=== PATIENT | female | born 1965 | race Caucasian/White ===

== ENCOUNTER 2019-04-02 06:24 | Observation (INO) | payer OTHER, SELFPAY ==
[2019-04-02] MEDS ORDERED: Aspirin Chewable 81 MG TAB ONE (07:18)
[2019-04-02] MEDS ORDERED: Nitroglycerin 0.4 MG TAB 1 EACH ONE (07:18)
[2019-04-02 07:42] LABS: Hemoglobin 11.6 g/dL (12.0-16.0); Mean Corpuscular HGB CONC 31.3 g/dL (32.0-36.0); Mean Corpuscular Volume 83.1 fL (78.0-98.0); Mean Platelet Volume 12.8 fL (7.4-10.4); Platelet Count 166 thou/uL (130-400); RBC Distribution Width 14.8 % (11.5-14.5); Red Blood Cell (RBC) Count 4.46 mill/uL (4.20-5.40); White Blood Cell (WBC) Count 9.5 thou/uL (4.8-10.8)
[2019-04-02 07:43] LABS: #Lymphocytes 0.8 thou/uL (1.20-3.40); #Monocytes 0.3 thou/uL (0.11-0.59); #Neutrophils 8.3 thou/uL (1.40-6.50); %Basophils 0.3 % (0.0-1.0); %Eosinophils 0.2 % (0.0-10.0); %Lymphocytes 8.3 % (21.0-51.0); %Monocytes 3.3 % (0.0-10.0); %Neutrophils 87.9 % (42.0-75.0)
--- NOTE | 2019-04-02 07:43 | RAD ---
Chest one view HISTORY: Chest pain. FINDINGS: No comparison. Cardiac silhouette is magnified by projection. Pulmonary vasculature is unre markable. Mediastinum is midline. No confluent airspace consolidation or evidence of pneumothorax. IMPRESSION: No active cardiopulmonary abnormalities are demonstrated.
[2019-04-02 07:58] LABS: ALT (SGPT) 89 U/L (8-55); AST (SGOT) 214 U/L (5-34); Albumin 4.1 g/dL (3.5-5.0); Alkaline Phosphatase 108 U/L (40-150); Anion Gap 15 mmol/L (10-20); BUN (Urea Nitrogen) 32 mg/dL (9.8-20.1); Bilirubin, Total 0.8 mg/dL (0.2-1.2); CK (CPK) 94 U/L (29-168); Calc. Creatinine Clearance 0 mL/min (70-130); Carbon Dioxide 23 mmol/L (22-29); Chloride 105 mmol/L (98-107); Estimated GFR-MDRD 54; Globulin 3.2 g/dL (2.4-3.5); Glucose 304 mg/dL (70-105); Potassium 4.5 mmol/L (3.5-5.1); Protein, Total 7.3 g/dL (6.0-8.3); Sodium 138 mmol/L (136-145)
[2019-04-02 08:02] LABS: Large Platelets SLIGHT; MDiff Complete? YES; Ovalocytes SLIGHT = 2-5 cells (100X) (0-1/hpf); Platelet Morphology Comment Appears Adequate; Polychromasia SLIGHT = 2-3 cells (100X) (0-2/hpf)
[2019-04-02] MEDS ORDERED: Ondansetron PF 4 MG/2 ML Vial ONE (08:13)
[2019-04-02] MEDS ORDERED: Pantoprazole 40 MG VIAL ONE (08:13)
[2019-04-02] MEDS ORDERED: Morphine 4 MG/ML VIAL ONE (08:13)
[2019-04-02] MEDS ORDERED: Nitroglycerin 2% Ointment 1 INCH/1 GM Packet ONE (08:13)
[2019-04-02 10:59] LABS: Troponin I Less than 0.010 ng/mL (< 0.028)
[2019-04-02 12:45] LABS: Troponin I Less than 0.010 ng/mL (< 0.028)
[2019-04-02] MEDS ORDERED: Ondansetron PF 4 MG/2 ML Vial IVP PRN (13:18)
[2019-04-02] MEDS ORDERED: Acetaminophen 325 MG TAB PO PRN (13:18)
[2019-04-02] MEDS ORDERED: Dextrose 5% in Water 1,000 ML IV PRN (13:18)
[2019-04-02] MEDS ORDERED: HumaLOG 300 UNITS/3 ML VIAL SC PRN (13:18)
[2019-04-02] MEDS ORDERED: Acetaminophen 650 MG Suppository PR PRN (13:18)
[2019-04-02] MEDS ORDERED: Ondansetron ODT 4 MG TAB PO PRN (13:18)
[2019-04-02] MEDS ORDERED: Dextrose 50% Abboject 50 ML SYRINGE SLOW IVP PRN (13:18)
--- NOTE | 2019-04-02 13:40 | RAD ---
SUPINE ABDOMEN: 04/02/19 HISTORY: Abdominal pain, constipation. Bowel gas patter unremarkable. Scattered stool and gas throughout the colon. Post cholecystectomy cli ps. Small bowel gas patter is unremarkable. No mass effect. Corolla shaped density overlying the left colon may represent ingested tablet. IMPRESSION: Unremarkable bowel gas pattern. POS: [facility]
[2019-04-02] MEDS ORDERED: Acetaminophen 325 MG TAB ONE (14:02)
[2019-04-02 16:07] VITALS: BMI 38.6
--- NOTE | 2019-04-02 17:37 | ULT ---
RIGHT UPPER QUADRANT ABDOMINAL ULTRASOUND: 04/02/19 COMPARISON: None. HISTORY: Right sided abdominal pain and elevated LFTs. TECHNIQUE: Multiplanar chamberlain scale and color Doppler images were obtained in a right upper quadrant abdominal ult rasound. FINDINGS: The liver is normal in echogenicity without focal lesions or intrahepatic ductal dilatation. Multiple shadowing stones are seen in the gallbladder. There is no gallbladder wall thickening or pericholecy stic fluid. The common bile duct is normal measuring 1 to 2 mm. The visualized portions of the pancreas are unremarkable. The right kidney is normal in echogenicity without hydronephrosis or calculus and measures 10.2 cm in length. IMPRESSION: Cholelithiasis. POS: C
[2019-04-02] MEDS ORDERED: Melatonin 3 MG TAB PO PRN (17:43)
[2019-04-02] MEDS: Sodium Chloride 0.9% 1,000 ML IV SCH (17:52)
--- NOTE | 2019-04-02 20:24 | HP ---
CHIEF COMPLAINT: Chest pain. HISTORY OF PRESENT ILLNESS: Ms. Brady is a very pleasant 53-year-old woman, who presents with complaints of chest pain that woke her from her sleep at approximately 2:00 this morning. The patient describes a pain in the lower sternal/epigastric region and states it felt like a pressure similar to what she has experienced in the past. The patient has a history of a gastric sleeve and feels she has had episodes where food gets stuck and her pain is unrelieved with vomiting. The gastric sleeve was placed 7 years ago. The patient states the discomfort she felt today was different in that she did not vomit. She states the discomfort wrapped around both sides of her abdomen and she found it difficult to take a deep breath due to the pressure felt in her upper abdomen. She did not try taking anything for this at home and due to concerns for cardiac problem, she opted to come in to the emergency department. The patient states in the last 2 to 3 months, she has made changes with her diet and has become more conscious of maintaining a low sugar, low-carbohydrate diet as she used to do after initially undergoing the gastric sleeve. The patient states since then, she has noted changes with her glucose, which have many times been in the 50s. She also reports noting a drop in her blood pressure, which has been in the 90s systolic. The patient sought to obtain followup with her primary care physician for both of these issues. She was advised to adjust her diabetes medications on her own until due for the 3-month hemoglobin A1c check on April 10. The patient therefore opted to discontinue her Lantus and drop her glyburide/metformin 5/500 mg dose to one tablet daily instead of 2 tablets daily. She has taken her insulin on occasion if her glucose has been in the 200s due to what she is eating. Otherwise, she has been very strict with her diet. The patient denies experiencing any diaphoresis with the chest pain. Denies having any shortness of breath or cough. No hemoptysis. Denies having any fevers. She does report having chills down in the emergency department. Reports having issues with constipation. Denies having any dysuria or hematuria. All other review of systems are negative. PAST MEDICAL HISTORY: 1. Diabetes mellitus. 2. Hypertension. 3. Obesity. 4. Depression. PAST SURGICAL HISTORY: 1. . 2. Hand surgery. 3. Gastric sleeve in 2012. SOCIAL HISTORY: The patient denies any alcohol intake. Denies any drug use or tobacco use, though she did smoke until 1 year ago. ALLERGIES: NO KNOWN DRUG ALLERGIES. CURRENT MEDICATIONS: 1. Lantus. 2. Lisinopril. 3. Simvastatin. 4. Glyburide/metformin. 5. Oxybutynin. 6. Prozac. PHYSICAL EXAMINATION: GENERAL: The patient appears overweight, well developed, in no acute distress. VITAL SIGNS: Temperature 97.4, pulse 63, blood pressure 101/68, respirations 16, O2 saturation 97% on room air. HEENT: Normocephalic and atraumatic. Pupils are equal, round, reactive to light. Sclerae icterus. Oropharynx is clear. NECK: Supple. LUNGS: Clear to auscultation bilaterally. CARDIAC: Regular rate and rhythm. No chest wall tenderness. ABDOMEN: Soft, nontender, nondistended. Normoactive bowel sounds present. No Crowley sign. No renal angle tenderness. No guarding or rigidity. EXTREMITIES: Without lower leg swelling or edema. NEUROLOGIC: Alert and oriented x3. SKIN: Without rash or jaundice. LABORATORY STUDIES: EKG showed normal sinus rhythm without any ST changes or T-wave abnormalities. White count 9.5, hemoglobin 11.6, hematocrit 37, platelets 166. D-dimer 0.36. Electrolytes unremarkable. BUN 32, creatinine 1.06, GFR 54. No previous renal functions to compare to. Glucose 304, calcium 10, total bilirubin 0.8, AST elevated at 214 and ALT 89. Lipase 49. Troponin negative x3. CK 94, and alkaline phosphatase 108. IMAGING DATA: Chest x-ray showed no active cardiopulmonary abnormalities. IMPRESSION AND PLAN: Ms. Brady is a 53-year-old woman, who presented with lower sternal/epigastric pain, referred for management of the following. 1. Acute coronary syndrome rule out. Troponins negative x3. An EKG without any changes. Pain appears to be more abdominal in nature, likely associated with her gastric sleeve or gallbladder problem given the elevated LFTs. No pain at present. Unlikely to be cardiac in nature, but we will continue to trend troponins and monitor. We will obtain a stress test given her risk factors. We have also requested a gallbladder ultrasound and abdominal x-ray. We will continue to trend her LFTs. 2. Constipation. We will manage with stool softeners. 3. Hypertension. We will resume her home medications, but we will monitor her blood pressures and administer accordingly. 4. Diabetes mellitus. We will reconcile her home medications except Lantus. We will initiate insulin sliding scale. Metformin and glyburide will be held for now given stress test. 5. Gastrointestinal prophylaxis with Protonix. 6. Deep venous thrombosis prophylaxis with mechanical SCDs. 7. Code status full. Her surrogate decision maker is her , Tre Aranda. 8. The patient's case was discussed with Dr. Ornelas, who agrees with plan of care as described above. Job ID: [id number]
[2019-04-02] MEDS ORDERED: Famotidine/PF 20 mg/2ml Vial SLOW IVP SCH (21:00)
[2019-04-02] MEDS ORDERED: Pantoprazole 40 MG VIAL IVP SCH (21:00)
[2019-04-02] MEDS: Rosuvastatin 20 MG TAB PO SCH (21:37)
[2019-04-02 23:41] LABS: Bacteria/HPF 1+ HPF (None Seen); Bilirubin Negative (Negative); Blood, Urine Negative (Negative); Clarity Clear (Clear); Glucose, Urine (Dipstick) Normal (Negative); Leukocyte Negative Leu/uL (Negative); Nitrite Negative (Negative); Protein, Urine (Dipstick) 20 mg/dL (Neg-Trace); RBC/HPF 0-3 HPF (0-3); Squamous Epithelial 0-3 HPF (0-3); Urobilinogen Normal mg/dL (Less than 2); WBC/HPF 0-3 HPF (0-3)
[2019-04-02 23:46] LABS: Urine Culture Reflex No No
[2019-04-03] MEDS: Sodium Chloride 0.9% 1,000 ML IV SCH ×2 (05:55→08:48)
[2019-04-03 05:57] LABS: #Eosinphils 0.2 thou/uL (0.0-0.7); #Lymphocytes 1.3 thou/uL (1.20-3.40); #Monocytes 0.5 thou/uL (0.11-0.59); #Neutrophils 4.5 thou/uL (1.40-6.50); %Basophils 0.2 % (0.0-1.0); %Eosinophils 3.2 % (0.0-10.0); %Lymphocytes 20.4 % (21.0-51.0); %Monocytes 7.3 % (0.0-10.0); %Neutrophils 68.9 % (42.0-75.0); Hemoglobin 10.8 g/dL (12.0-16.0); Mean Corpuscular HGB CONC 31.3 g/dL (32.0-36.0); Mean Corpuscular Hemoglobin 26.4 pg (27.0-31.0); Mean Corpuscular Volume 84.4 fL (78.0-98.0); Mean Platelet Volume 12.3 fL (7.4-10.4); Platelet Count 153 thou/uL (130-400); RBC Distribution Width 15.1 % (11.5-14.5); Red Blood Cell (RBC) Count 4.11 mill/uL (4.20-5.40); White Blood Cell (WBC) Count 6.6 thou/uL (4.8-10.8)
[2019-04-03 06:23] LABS: ALT (SGPT) 459 U/L (8-55); AST (SGOT) 456 U/L (5-34); Albumin 3.6 g/dL (3.5-5.0); Alkaline Phosphatase 177 U/L (40-150); Anion Gap 9 mmol/L (10-20); BUN (Urea Nitrogen) 21 mg/dL (9.8-20.1); Bilirubin, Total 1.6 mg/dL (0.2-1.2); Calc. Creatinine Clearance 103 mL/min (70-130); Calcium 9.6 mg/dL (7.8-10.44); Carbon Dioxide 28 mmol/L (22-29); Chloride 108 mmol/L (98-107); Estimated GFR-MDRD 58; Glucose 175 mg/dL (70-105); Lipase 27 U/L (8-78); Potassium 4.1 mmol/L (3.5-5.1); Protein, Total 6.6 g/dL (6.0-8.3); Sodium 141 mmol/L (136-145)
[2019-04-03] MEDS: FLUoxetine HCl 20 MG CAP PO SCH (08:45)
[2019-04-03] MEDS: Oxybutynin 5 MG TAB PO SCH (08:45)
[2019-04-03] MEDS: Lisinopril 10 MG TAB PO SCH (08:46)
[2019-04-03] MEDS ORDERED: cefOXitin Sodium/Dextrose,Iso 2 GM in Premix Bag 1 BAG IVPB SCH (13:15)
--- NOTE | 2019-04-03 14:00 | PDOC.PN ---
- Subjective Encounter Start Date: 04/03/19 Encounter Start Time: 07:57 Subjective: Patient states she feels well and without any complaints. -: No further abdominal pain, n/v. has not had anything to eat -: due to stress test scheduled for today. No fevers, chills or sweats. Denies any chest pain or sob. No lightheadedness/dizziness. - Objective Resuscitation Status - Order Detail: 04/02/19 13:18 Resuscitation Status Routine Co-Sign Provider: Resuscitation Status: FULL: Full Resuscitation Vital Signs & Weight: Vital Signs (12 hours) Temp Pulse Resp BP BP Pulse Ox 04/03/19 11:38 97.9 F 60 15 143/64 H 99 04/03/19 08:00 97.9 F 68 16 130/61 96 04/03/19 05:15 69 18 115/54 L 95 Weight Weight 225 lb I&O: 04/02/19 04/03/19 04/04/19 06:59 06:59 06:59 Intake Total 240 Output Total 100 Balance 140 Result Diagrams: 04/03/19 05:43 04/03/19 05:43 Additional Labs: Accuchecks 04/02/19 04/02/19 20:45 15:58 POC Glucose 201 H 221 H Phys Exam - Physical Examination Constitutional: NAD HEENT: PERRLA, moist MMs, oral pharynx no lesions Neck: no nodes, supple, full ROM Respiratory: clear to auscultation bilateral Cardiovascular: RRR Gastrointestinal: soft, non-tender, no distention, positive bowel sounds Musculoskeletal: no edema, pulses present Neurological: normal sensation, moves all 4 limbs Psychiatric: normal affect, A&O x 3 Skin: no rash Dx/Plan (1) Elevated liver enzymes Code(s): R74.8 - ABNORMAL LEVELS OF OTHER SERUM ENZYMES Status: Acute (2) Cholelithiasis Code(s): K80.20 - CALCULUS OF GALLBLADDER W/O CHOLECYSTITIS W/O OBSTRUCTION Status: Acute (3) Diabetes Code(s): E11.9 - TYPE 2 DIABETES MELLITUS WITHOUT COMPLICATIONS Status: Chronic Qualifiers: Diabetes mellitus type: type 2 (4) Hypertension Code(s): I10 - ESSENTIAL (PRIMARY) HYPERTENSION Status: Chronic - Plan cont current plan of care, DVT proph w/SCDs LFTs further elevated and now with hyperbilirubinemia. -: Gallstones confirmed on GB US yesterday but at that time no obstruction. -: Consult placed to Dr. Doe (Her surgeon who performed her gastric sleeve). -: Patient for stress test, remain NPO after stress test, til surgical review * .
--- NOTE | 2019-04-03 14:42 | NM ---
MYOCARDIAL PERFUSION SCAN: INDICATIONS: Chest pain. TECHNIQUE: A stress only exam was performed, administering 30 millicuries of technetium sestamibi. FINDINGS: The left ventricle shows normal activity on the stress only images. No evidence of defect or ischemi a. Wall motion appears normal with ejection fraction recorded at 60%. IMPRESSION: Negative stress only myocardial perfusion examination. POS: [facility]
--- NOTE | 2019-04-03 15:29 | CON ---
DATE OF CONSULTATION: CHIEF COMPLAINT: Severe epigastric pain. HISTORY OF PRESENT ILLNESS: A 53-year-old female, who was admitted to the hospital with an episode of severe epigastric pain associated with nausea, radiating to the back. She has had several smaller episodes of this. Ultrasound shows cholelithiasis. PAST MEDICAL HISTORY: Diabetes, hypertension, obesity, depression. PAST SURGICAL HISTORY: section, hand surgery, sleeve gastrectomy in 2012. MEDICATIONS: Lantus, lisinopril, simvastatin, glyburide, oxybutynin, and Prozac. ALLERGIES: NO KNOWN DRUG ALLERGIES. SOCIAL HISTORY: No tobacco or alcohol. PHYSICAL EXAMINATION: VITAL SIGNS: Temperature 97.9, pulse 60, blood pressure 143/64. GENERAL: Obese female, in no apparent distress. HEENT: No jaundice. LUNGS: Clear. HEART: Regular rate and rhythm. ABDOMEN: Obese, soft. Mild tenderness in mid epigastrium and right upper quadrant. EXTREMITIES: Unremarkable. LABORATORY DATA: White count 6.6, H and H 10 and 34, platelet count 153. She has an elevated bilirubin at 1.6, AST at 456, ALT at 459, alkaline phosphatase 177, lipase is 27. ASSESSMENT: Severe biliary colic with elevated liver functions. PLAN: Laparoscopic cholecystectomy with cholangiogram. CONSENT: Discussed planned procedure as well as risk of bleeding, infection, injury to bowel and bladder, need to open. She understands and gives informed consent. Job ID: [id number]
[2019-04-03] MEDS: HumaLOG 300 UNITS/3 ML VIAL SC PRN (17:43)
[2019-04-03] MEDS: Rosuvastatin 20 MG TAB PO SCH (21:29)
[2019-04-04] MEDS: Sodium Chloride 0.9% 1,000 ML IV SCH ×2 (01:04→12:59)
[2019-04-04 08:36] LABS: PTT 36.6 SEC (22.9-36.1); Prothrombin Time 13.1 SEC (12.0-14.7)
[2019-04-04 08:38] LABS: #Eosinphils 0.1 thou/uL (0.0-0.7); #Lymphocytes 1.6 thou/uL (1.20-3.40); #Monocytes 0.4 thou/uL (0.11-0.59); #Neutrophils 5.2 thou/uL (1.40-6.50); %Basophils 0.4 % (0.0-1.0); %Eosinophils 1.9 % (0.0-10.0); %Lymphocytes 21.5 % (21.0-51.0); %Monocytes 5.9 % (0.0-10.0); %Neutrophils 70.4 % (42.0-75.0); Hemoglobin 10.5 g/dL (12.0-16.0); Mean Corpuscular HGB CONC 31.2 g/dL (32.0-36.0); Mean Corpuscular Hemoglobin 26.2 pg (27.0-31.0); Mean Platelet Volume 12.7 fL (7.4-10.4); Platelet Count 159 thou/uL (130-400); White Blood Cell (WBC) Count 7.3 thou/uL (4.8-10.8)
[2019-04-04 08:58] LABS: ALT (SGPT) 272 U/L (8-55); AST (SGOT) 114 U/L (5-34); Albumin 3.5 g/dL (3.5-5.0); Alkaline Phosphatase 173 U/L (40-150); Anion Gap 11 mmol/L (10-20); BUN (Urea Nitrogen) 17 mg/dL (9.8-20.1); Bilirubin, Total 0.5 mg/dL (0.2-1.2); Calc. Creatinine Clearance 102 mL/min (70-130); Calcium 9.3 mg/dL (7.8-10.44); Carbon Dioxide 25 mmol/L (22-29); Chloride 107 mmol/L (98-107); Estimated GFR-MDRD 58; Glucose 198 mg/dL (70-105); Lipase 23 U/L (8-78); Protein, Total 6.5 g/dL (6.0-8.3); Sodium 139 mmol/L (136-145)
[2019-04-04] MEDS ORDERED: Bupivacaine/Epinephrine 0.25% 30 ML VIAL ONE (09:08)
[2019-04-04] MEDS ORDERED: Midazolam HCl 2 mg/2 ml Vial ONE (09:12)
[2019-04-04] MEDS ORDERED: Lidocaine 2% Jelly 5 ML TUBE ONE (09:12)
[2019-04-04] MEDS ORDERED: Fentanyl 100 MCG/2 ML VIAL ONE ×4 (09:12→11:24)
[2019-04-04] MEDS ORDERED: cefOXitin 2 GM VIAL ONE (09:17)
[2019-04-04] MEDS ORDERED: Sodium Chloride 0.9% 100 ML ONE (09:17)
[2019-04-04] MEDS ORDERED: Iothalamate Meglumine 60% 50 ML VIAL FS ONE (09:35)
[2019-04-04] MEDS ORDERED: Promethazine HCl 25 MG/ML VIAL IM PRN ×2 (10:33→11:02)
[2019-04-04] MEDS ORDERED: HYDROcodone/Acetaminophen 10/325 mg Tablet PO PRN (10:33)
[2019-04-04] MEDS ORDERED: Morphine 4 MG/ML VIAL SLOW IVP PRN (10:33)
[2019-04-04] MEDS ORDERED: Mag-Al 1200 mg/1200 mg/30 ML UDCUP PO PRN (10:33)
[2019-04-04] MEDS ORDERED: Calcium Carbonate 500 MG ChewTAB PO PRN (10:33)
[2019-04-04] MEDS ORDERED: hydrALAZINE 20 MG/ML VIAL SLOW IVP PRN (10:33)
[2019-04-04] MEDS ORDERED: Ondansetron PF 4 MG/2 ML Vial IVP PRN (10:33)
[2019-04-04] MEDS ORDERED: Dextrose 5% in Water 1,000 ML IV PRN (10:33)
[2019-04-04] MEDS ORDERED: Dextrose 50% Abboject 50 ML SYRINGE SLOW IVP PRN (10:33)
[2019-04-04] MEDS ORDERED: Morphine 2 MG/ML SYRINGE SLOW IVP PRN (10:54)
[2019-04-04] MEDS ORDERED: Ondansetron HCl/PF 4 MG/2 ML Vial IVP PRN (11:02)
[2019-04-04] MEDS ORDERED: Promethazine HCl 25 MG/ML VIAL SLOW IVP PRN (11:02)
--- NOTE | 2019-04-04 11:39 | RAD ---
XR Cholangiogram in Surgery HISTORY: Intraoperative film COMPARISON: None. FINDINGS: 2 films are presented for interpretation of these show filling of a nondilated common bile duct with emptying into the duodenum. No filling defects seen. IMPRESSION: Unremarkable operative cholangiogram.
[2019-04-04] MEDS ORDERED: Labetalol HCl 100 MG/20 ML VIAL ONE (11:40)
[2019-04-04] MEDS ORDERED: Morphine 4 MG/ML VIAL ONE (12:08)
--- NOTE | 2019-04-04 12:34 | OP ---
DATE OF PROCEDURE: 04/04/2019 PREOPERATIVE DIAGNOSIS: Symptomatic cholelithiasis with elevated liver function. PROCEDURE PERFORMED: Laparoscopic cholecystectomy with cholangiogram. INDICATIONS: A 53-year-old female, who has been having severe epigastric pain radiating to back. She had elevated liver function tests. Negative heart workup. Ultrasound showed stones. FINDINGS: Multiple stones in the gallbladder. Cholangiogram was normal. DESCRIPTION OF PROCEDURE: After informed consent was obtained, the patient was taken to the operating room, given general endotracheal anesthesia, placed in supine position. Abdomen was prepped and draped in usual fashion. Local anesthesia was infiltrated subcutaneously and deep subumbilical incision was performed. Subcu divided sharply. The fascia was grasped with 2 stay sutures of 0 Vicryl, placed in each side of midline. Midline incised. Digital palpation revealed no local adhesions. A blunt 12 mm trocar inserted. Pneumoperitoneum was created to a pressure of 15 mmHg. Three 5 mm ports were placed subcostally. Gallbladder grasped, advanced superiorly. The peritoneum lysed distally to expose the cystic duct artery in critical view. A clip was placed at the base of the gallbladder on the cystic duct. An incision was made in the cystic duct. An Arrow cholangiocatheter inserted. Intraoperative cholangiogram was performed utilizing fluoroscopy. It showed free flow in the duodenum. No filling defects. Normal hepatic ducts. The duct was triply ligated with hemoclips and divided the artery. Triply ligated with hemoclips and divided the gallbladder, removed from its fossa utilizing electrocautery, removed from the abdomen through the umbilical port. Hemostasis was assured. Trocars and retractors removed. Fascia closed with interrupted 0 Vicryl suture. The skin closed with interrupted 4-0 Rapide. Dermabond applied. The patient tolerated the procedure well, transferred to Recovery in good condition. Sponge and needle count verified correct x2. Job ID: [id number]
[2019-04-04] MEDS: Oxybutynin 5 MG TAB PO SCH (12:58)
[2019-04-04] MEDS: Ketorolac Tromethamine 30 MG/ML VIAL IVP SCH ×3 (12:58→23:41)
[2019-04-04] MEDS: Lisinopril 10 MG TAB PO SCH (12:58)
[2019-04-04] MEDS: FLUoxetine HCl 20 MG CAP PO SCH (12:59)
[2019-04-04] MEDS ORDERED: Ondansetron PF 4 MG/2 ML Vial ONE (13:52)
[2019-04-04] MEDS ORDERED: Rocuronium Bromide 10 MG/ML (10ML VIAL) ONE (13:52)
[2019-04-04] MEDS ORDERED: Lidocaine 1% PF 5 ML VIAL ONE (13:52)
[2019-04-04] MEDS ORDERED: PROPOFOL 200 MG/20 ML VIAL ONE (13:52)
[2019-04-04] MEDS ORDERED: Dexamethasone 20 MG/5 ML VIAL ONE (13:52)
--- NOTE | 2019-04-04 13:53 | PDOC.PN ---
- Subjective Encounter Start Date: 04/04/19 Encounter Start Time: 07:52 Subjective: Patient states she is feeling great and without any complaints. -: Denies any chest pain or sob. Has not had any abdominal pain. -: No fevers or chills. Resting comfortably and awaiting surgery this morning. - Objective Resuscitation Status - Order Detail: 04/02/19 13:18 Resuscitation Status Routine Co-Sign Provider: Resuscitation Status: FULL: Full Resuscitation Vital Signs & Weight: Vital Signs (12 hours) Temp Pulse Resp BP BP Pulse Ox 04/04/19 12:58 135/63 04/04/19 12:30 97.8 F 83 18 135/63 95 04/04/19 07:46 98.1 F 62 18 147/68 H 95 04/04/19 06:22 69 18 139/59 L Weight Weight 225 lb I&O: 04/03/19 04/04/19 04/05/19 06:59 06:59 06:59 Intake Total 240 1327 Output Total 100 Balance 140 1327 Result Diagrams: 04/04/19 08:12 04/04/19 08:12 Additional Labs: Accuchecks 04/04/19 04/03/19 04/03/19 06:21 20:49 16:47 POC Glucose 202 H 194 H 225 H 04/03/19 15:15 POC Glucose 249 H Phys Exam - Physical Examination Constitutional: NAD HEENT: PERRLA, moist MMs, sclera anicteric Neck: no nodes, supple, full ROM Respiratory: no wheezing, no rales, no rhonchi, clear to auscultation bilateral Cardiovascular: RRR Gastrointestinal: soft, non-tender, no distention, positive bowel sounds Musculoskeletal: no edema, pulses present Neurological: normal sensation, moves all 4 limbs Psychiatric: normal affect, A&O x 3 Skin: no rash Dx/Plan (1) Elevated liver enzymes Code(s): R74.8 - ABNORMAL LEVELS OF OTHER SERUM ENZYMES Status: Acute Plan: (2) Cholelithiasis Code(s): K80.20 - CALCULUS OF GALLBLADDER W/O CHOLECYSTITIS W/O OBSTRUCTION Status: Acute (3) Diabetes Code(s): E11.9 - TYPE 2 DIABETES MELLITUS WITHOUT COMPLICATIONS Status: Chronic Qualifiers: Diabetes mellitus type: type 2 (4) Hypertension Code(s): I10 - ESSENTIAL (PRIMARY) HYPERTENSION Status: Chronic - Plan cont current plan of care LFTs now trending down. Patient asymptomatic. -: For abhi liue this am. Possible discharge later today if no problems. -: ADDENDUM: patient returned from surgery, apparently had an episode of -: chest pain, EKG done and normal. Trop negative. Will continue to trend. -: Believed to be associated with air, causing pain up chest into Lt shoulder. She became hypertensive in 160s, and was treated with Labetalol. She was also given Fentanyl for pain. Patient feeling well at present, no pain but feels constipated. Clear liquid diet to be advanced as tolerated. Will give Miralax.
[2019-04-04] MEDS: HYDROcodone/Acetaminophen 10/325 mg Tablet PO PRN (16:18)
[2019-04-04] MEDS: Polyethylene Glycol 3350 17 GM Packet PO PRN (16:20)
[2019-04-04] MEDS: cefOXitin Sodium/Dextrose,Iso 2 GM in Premix Bag 1 BAG IVPB SCH (17:54)
[2019-04-04] MEDS: HumaLOG 300 UNITS/3 ML VIAL SC PRN (17:56)
[2019-04-04] MEDS ORDERED: cefOXitin 2 GM in Sodium Chloride 0.9% 100 ML IVPB SCH (18:00)
[2019-04-04] MEDS: Famotidine 20 MG TAB PO SCH (20:54)
[2019-04-04] MEDS: Rosuvastatin 20 MG TAB PO SCH (20:54)
[2019-04-04] MEDS: Famotidine/PF 20 mg/2ml Vial SLOW IVP SCH (20:55)
[2019-04-05] MEDS: cefOXitin Sodium/Dextrose,Iso 2 GM in Premix Bag 1 BAG IVPB SCH ×2 (02:01→09:51)
[2019-04-05] MEDS: HumaLOG 300 UNITS/3 ML VIAL SC PRN ×2 (05:56→12:10)
[2019-04-05] MEDS: Sodium Chloride 0.9% 1,000 ML IV SCH (05:57)
[2019-04-05] MEDS: Ketorolac Tromethamine 30 MG/ML VIAL IVP SCH (05:58)
[2019-04-05 06:02] LABS: #Lymphocytes 1.7 thou/uL (1.20-3.40); #Monocytes 0.5 thou/uL (0.11-0.59); #Neutrophils 6.4 thou/uL (1.40-6.50); %Basophils 0.1 % (0.0-1.0); %Eosinophils 0.3 % (0.0-10.0); %Lymphocytes 19.4 % (21.0-51.0); %Monocytes 5.4 % (0.0-10.0); %Neutrophils 74.7 % (42.0-75.0); Hemoglobin 9.4 g/dL (12.0-16.0); Mean Corpuscular HGB CONC 30.6 g/dL (32.0-36.0); Mean Corpuscular Hemoglobin 25.8 pg (27.0-31.0); Mean Corpuscular Volume 84.4 fL (78.0-98.0); Mean Platelet Volume 12.3 fL (7.4-10.4); Platelet Count 143 thou/uL (130-400); RBC Distribution Width 15.1 % (11.5-14.5); Red Blood Cell (RBC) Count 3.64 mill/uL (4.20-5.40); White Blood Cell (WBC) Count 8.5 thou/uL (4.8-10.8)
[2019-04-05 06:26] LABS: ALT (SGPT) 201 U/L (8-55); AST (SGOT) 60 U/L (5-34); Albumin 3.4 g/dL (3.5-5.0); Alkaline Phosphatase 141 U/L (40-150); Anion Gap 12 mmol/L (10-20); BUN (Urea Nitrogen) 22 mg/dL (9.8-20.1); Bilirubin, Total 0.4 mg/dL (0.2-1.2); Calc. Creatinine Clearance 85 mL/min (70-130); Calcium 8.9 mg/dL (7.8-10.44); Carbon Dioxide 23 mmol/L (22-29); Chloride 104 mmol/L (98-107); Estimated GFR-MDRD 47; Globulin 2.8 g/dL (2.4-3.5); Glucose 295 mg/dL (70-105); Potassium 4.4 mmol/L (3.5-5.1); Protein, Total 6.2 g/dL (6.0-8.3); Sodium 135 mmol/L (136-145)
[2019-04-05] MEDS ORDERED: Ketorolac Tromethamine 30 MG/ML VIAL IVP SCH (07:30)
[2019-04-05] MEDS ORDERED: Enoxaparin Sodium 40 MG/0.4 ML SYRINGE SC SCH (09:00)
[2019-04-05] MEDS: Famotidine/PF 20 mg/2ml Vial SLOW IVP SCH (09:39)
[2019-04-05] MEDS: Famotidine 20 MG TAB PO SCH (09:49)
[2019-04-05] MEDS: Lisinopril 10 MG TAB PO SCH (09:49)
[2019-04-05] MEDS: FLUoxetine HCl 20 MG CAP PO SCH (09:49)
[2019-04-05] MEDS: Polyethylene Glycol 3350 17 GM Packet PO PRN (09:50)
[2019-04-05] MEDS: Oxybutynin 5 MG TAB PO SCH (09:50)
[2019-04-05] MEDS: HYDROcodone/Acetaminophen 10/325 mg Tablet PO PRN (09:51)
--- NOTE | 2019-04-05 12:15 | EKG ---
Test Reason : CP Blood Pressure : / mmHG Vent. Rate : 061 BPM Atrial Rate : 061 BPM P-R Int : 152 ms QRS Dur : 076 ms QT Int : 442 ms P-R-T Axes : -02 -08 003 degrees QTc Int : 444 ms Normal sinus rhythm Low voltage QRS Confirmed by JUSTO GOLDMAN ([id number]), editor sound JOSE E TYLER ([id number]) on 04/05/2019 12:14:47 PM Referred By: Confirmed By:JUSTO GOLDMAN
[2019-04-05 12:46] VITALS: BP 148/58; TEMP 97.3
--- NOTE | 2019-04-07 16:48 | EKG ---
Test Reason : C/O CHEST PAIN Blood Pressure : / mmHG Vent. Rate : 097 BPM Atrial Rate : 097 BPM P-R Int : 172 ms QRS Dur : 076 ms QT Int : 372 ms P-R-T Axes : 062 016 013 degrees QTc Int : 472 ms Normal sinus rhythm Low voltage QRS Nonspecific ST abnormality Abnormal ECG Confirmed by NADIA SANDOVAL ([id number]) on 04/07/2019 4:47:57 PM Referred By: Confirmed By:NADIA SANDOVAL
== END 2019-04-05 13:18 | disposition home or self-care (01) ==
LOC: ERS 06:24 → ERHOLD 09:42 → 2SW 15:34
PROVIDERS: ADMIT Internal Medicine; ATTEND Internal Medicine
PROC: 0FT44ZZ Resection of Gallbladder, Percutaneous Endoscopic Approach (ICD-10-PCS; principal; 2019-04-04)
PROC: BF121ZZ Fluoroscopy of Gallbladder using Low Osmolar Contrast (ICD-10-PCS; 2019-04-04)
DX: K80.10 Calculus of gallbladder with chronic cholecystitis without obstruction (principal); R74.8 Abnormal levels of other serum enzymes; E11.9 Type 2 diabetes mellitus without complications; I10 Essential (primary) hypertension; F32.9 Major depressive disorder, single episode, unspecified; E66.9 Obesity, unspecified; Z68.38 Body mass index [BMI] 38.0-38.9, adult; Z79.4 Long term (current) use of insulin; Z79.899 Other long term (current) drug therapy; Z98.84 Bariatric surgery status
CPT/HCPCS: 36415; 36416; 47532; 71045; 74018; 76705; 78452; 80053; 81001; 82550; 83690; 83880; 84484; 85025; 85379; 85610; 85730; 88304; 93005; 93010; 93017; 96361; 96365; 96372; 96374; 96375; 96376; A9500; C9113; G0378; J0153; J0694; J1100; J1610; J1885; J2001; J2250; J2270; J2405; J2704; J3010; J3490; S0028